=== PATIENT | male | born 1970 | race Caucasian/White ===

== ENCOUNTER 2016-08-30 15:32 | Inpatient (IN) | payer OTHER ==
--- NOTE | ~2016-08-30 | CR230 ---
[facility] A Service of [facility] RADIOLOGY TEXT RESULTS PATIENT: SHELBY RENAE LOCATION: [facility] 466-01 : [birth year] UNIT #: [id number] AGE: [address]: Billy Zamorano MD SEX: M ORDER DR: [id number] [facility]. [place], [place] [address] [id number] MR#: [id number] Acc #: [id number] NAME: SHELBY RENAE : 1970 SEX: M STUDY DATE/TIME: 09/01/2016 11:36 UNIT: [facility] ROOM: [facility] STUDY DESCRIPTION: CR Shoulder Min 2 View Rt Attending Physician: Billy Zamorano M.D. Ordering Physician: Henok Esposito M.D. Primary Care Physician: Elijah Baptiste M.D. MEDICAL IMAGING REPORT This report is preliminary unless electronic signature is present EXAM Right shoulder 2 views INDICATIONS 45-year male with right shoulder pain for 1 week. No known injury. No comparisons. FINDINGS There is no fracture or dislocation. No significant degenerative change. IMPRESSION Negative. Dictated by... Zi Tony M.D. THIS IS AN ELECTRONICALLY VERIFIED REPORT Zi Tony M.D. at 09/02/2016 10:43 AM JILLIAN/stephane TD: 09/02/2016 06:15 JOB #: [id number] MEDICAL IMAGING REPORT COPY
--- NOTE | ~2016-08-30 | CO ---
Unit #: [id number] #: [id number] Patient: SHELBY RENAE [id number] [address] [place], [place] [address] [id number] I MR#: [id number] NAME: SHELBY RENAE ROOM: 466 Age: 45 Sex: M Admission Date: 08/30/2016 : 1970 Attending Physician: Billy Zamorano M.D. Primary Care Physician: Elijah Baptiste M.D. Consultation Date: 08/31/2016 CONSULTATION REPORT REASON FOR CONSULTATION Right shoulder pain. HISTORY OF PRESENT ILLNESS Shelby is a 45-year-old male who presented to the emergency room on August 30, 2016, secondary to scrotal pain and swelling. The patient noted a small perianal scrotal abscess that started a couple days prior to the admission and became significantly worse. He was on Bactrim without improvement. He was seen in emergency room and noted to have enlarging abscess. He was subsequently taken to surgery by Dr. Zamorano for I and D. The patient also notes having right shoulder pain. This was noted preoperatively and has gotten worse over the past couple of days. He notes pain is worse with motion. He has pain over the anterolateral aspect of the right shoulder. No prior problems, injuries, or surgery on the shoulder and it does not seem to be improving. He describes a dull ache. PAST MEDICAL HISTORY 1. Obesity. 2. Psoriasis. 3. Psychiatric history. PAST SURGICAL HISTORY 1. Scrotal abscess I and D. 2. Bilateral hip replacements. HOME MEDICATIONS 1. Fluoxetine. 2. Diltiazem. 3. Gabapentin. 4. Bactrim. ALLERGIES No known drug allergies. REVIEW OF SYSTEMS No other pertinent positives or negatives noted other than what is mentioned in HPI. FAMILY HISTORY Noncontributory. PHYSICAL EXAMINATION GENERAL: The patient is alert and oriented for examination. No acute Unit #: [id number] #: [id number] Patient: SHELBY RENAE distress. VITAL SIGNS: Temperature 97.9 degrees Fahrenheit, pulse 72, respiratory rate 18, blood pressure 132/78, oxygen saturation 99% on room air. HEENT: Head is atraumatic, normocephalic. Extraocular movements intact. Mucous membranes moist. NECK: Cervical spine midline with no JVD. LUNGS: Breathing nonlabored and chest rise symmetric. HEART: Pulse regular rate and rhythm. ABDOMEN: Soft, nontender, nondistended. SKIN: No appreciable skin lesions other than in the scrotal region. EXTREMITIES: No clubbing, cyanosis, or edema of the extremities. All extremities warm and perfused. Focused orthopedic exam of the right upper extremity reveals tenderness to palpation of the anterolateral aspect of the glenohumeral joint. Pain with supraspinatus testing. Strength 3+ out of 5. Minimal discomfort with passive motion with the arm adducted at zero degrees. Full elbow and wrist motion. DIAGNOSTIC STUDIES LABORATORY: White blood cell count 10.1, hemoglobin 12.5, platelets 221,000. Creatinine 1. Blood cultures negative. Scrotal wound culture positive for MRSA. IMAGING: None. IMPRESSION A 45-year-old male with right shoulder pain, likely secondary to rotator cuff tendonitis and bursitis. PLAN We will go ahead and order two-view right shoulder x-rays. I would like to start him on Toradol x3 doses with the pharmacy to dose. We will re-evaluate him tomorrow morning to see if any improvement. I do not think he has any infection that has spread to the shoulder based on exam. This was discussed with the patient. All of his questions were answered. We will monitor his progress. Thank you for consulting us to see this patient. Dictated byGenesis Esposito M.D. SHERRY/haroon TD: 09/01/2016 10:19 JOB #: [id number] CC: [id number] Unit #: [id number] #: [id number] Patient: SHELBY RENAE CONSULTATION REPORT X X CONSULTATION REPORT
--- NOTE | ~2016-08-30 | HP ---
Unit #: [id number] #: [id number] Patient: SHELBY RENAE [id number] [facility]. [place], [place] [address] [id number] I MR#: [id number] NAME: SHELBY RENAE ROOM: 466 Age: 45 Sex: M Admission Date: 08/30/2016 : 1970 Attending Physician: Billy Zamorano M.D. Primary Care Physician: Elijah Baptiste M.D. HISTORY AND PHYSICAL CHIEF COMPLAINT Scrotal pain and swelling. HISTORY OF PRESENT ILLNESS This patient presented to the [facility] emergency department this afternoon and subsequently has had spontaneous drainage of a perineal scrotal abscess. He notes onset of symptoms two days ago and he was prescribed Bactrim by primary care and given an outpatient followup but worsened and presented to the emergency department. He has had no fever or chills but has had progressive groin pain. His abscess spontaneous drained in the mid afternoon. His history is pertinent for obesity, hip replacements twice and MRSA of the hip. He has never had a scrotal abscess before. He also is under pain management with Dr. Jelena Mccord for his orthopedic pain. PAST MEDICAL HISTORY 1. Obesity. 2. Psoriasis. 3. Psychiatric history. 4. Orthopedic history. PAST SURGICAL HISTORY Hip replacements as noted. HOME MEDICATIONS 1. Fluoxetine. 2. Diltiazem. 3. Gabapentin. 4. Bactrim. He received vancomycin, Zosyn and clindamycin several hours ago. ALLERGIES None known. PHYSICAL EXAMINATION VITAL SIGNS: Afebrile with stable vital signs. Initial temperature 98.6, pulse 102, blood pressure 113/84, respirations 18. GENERAL: The patient is fairly comfortable in the stretcher. Notable for obesity and psoriasis. ABDOMEN: Soft, nontender. GENITALIA: Phallus mildly, diffusely reddened. Scrotum large, soft without edema. Mild erythema. Also some vitiligo. The base of scrotum Unit #: [id number] #: [id number] Patient: SHELBY RENAE on the right side is draining deep in the perineum with induration radiating forward. No clear evidence of Mario gangrene. LUNGS: Clear. HEART: Regular rate and rhythm. EXTREMITIES: No edema. NEUROLOGIC: Intact. DIAGNOSTIC STUDIES LABORATORY: Normal BMP. WBC 16.5. IMPRESSION 1. Perineoscrotal abscess. 2. History of MRSA. 3. No history of voiding difficulties or perirectal problems. PLAN We'll continue broad antibiotic coverage and proceed with incision and drainage of perineoscrotal abscess. Dictated by Otilia Helms/mikhail TD: 08/30/2016 21:43 JOB #: [id number] HISTORY AND PHYSICAL X Billy Zamorano MD X HISTORY AND PHYSICAL
--- NOTE | ~2016-08-30 | DS ---
Unit #: [id number] #: [id number] Patient: SHELBY RENAE [id number] [address] [place], [place] [address] [id number] MR#: [id number] NAME: SHELBY RENAE ROOM: 466 Age: 45 Sex: M Admission Date: 08/30/2016 : 1970 Discharge Date: 09/05/2016 Attending Physician: Billy Zamorano M.D. Primary Care Physician: Elijah Baptiste M.D. DISCHARGE SUMMARY JOB NOTE: CC: DR. ELIJAH BAPTISTE AND DR. ROSA RUIZ AND DR. TERRENCE VENTURA. PRIMARY DIAGNOSIS Methicillin-resistant Staphylococcus aureus abscess, right groin. SECONDARY DIAGNOSIS Psoriatic arthritic pain, right shoulder. TERTIARY DIAGNOSIS Chronic pain. PROCEDURES Incision and drainage of right groin abscess on 08/30/2016. CONSULTATIONS Orthopedics, Dr. Rosa Harris on 09/01/2016. DISPOSITION Home pending social service assistance with home dressing changes. FOLLOWUP Orthopedic followup pending at time of discharge. DISCHARGE INSTRUCTIONS See me in 2 weeks for wound check. DISCHARGE MEDICATIONS Same as admission medications including extension of Bactrim double strength one b.i.d. for an additional week. HOSPITAL COURSE This patient with history of psoriasis, hip replacement, and previous MRSA, who was prescribed Bactrim for onset of a right groin abscess, but did not respond within 48 hours and presented to the emergency department with complaints of scrotal pain and swelling. He was broadly covered with vancomycin, clindamycin, and Zosyn. He was taken to the operating room and the abscess drained and packed. It was fairly superficial in nature. I personally did not see him again until the day of discharge, but social service disposition for dressing changes has been underway since postoperative day 1, and he has done well with excellent healing of the wound to date on 07/01 strength Dakin wet-to-dry dressing changes t.i.d. He has required narcotics with dressing changes, which is unusual at this Unit #: [id number] #: [id number] Patient: SHELBY RENAE point, and to be discontinued especially given his pain management history. He has been seen by Orthopedics and treated with anti-inflammatories with partial improvement and followup pending. At the time of discharge, his blood cultures all having been negative, but the wound culture growing MRSA as anticipated shows this fortunately to be sensitive to trimethoprim sulfa as well as Levaquin linezolid, clindamycin, daptomycin, tetracycline, and vancomycin. It is resistant to penicillin, oxacillin, and methicillin as anticipated. DISPOSITION As noted. Dictated by... Otilia Helms/sean TD: 09/06/2016 04:24 JOB #: [id number] DISCHARGE SUMMARY X Billy Zamorano MD X DISCHARGE SUMMARY
--- NOTE | ~2016-08-30 | OR ---
Unit #: [id number] #: [id number] Patient: SHELBY RENAE [id number] [place], [place] [address] [id number] MR#: [id number] NAME: SHELBY RENAE ROOM: [facility] Date of Procedure: 08/30/2016 Admission Date: 08/30/2016 Surgeon: Billy Zamorano M.D. : 1970 Attending Physician: Billy Zamorano M.D. Primary Care Physician: Elijah Baptiste M.D. OPERATIVE REPORT JOB NOTE: CC: DR. ELIJAH BAPTISTE. PREOPERATIVE DIAGNOSIS Perineal scrotal abscess. POSTOPERATIVE DIAGNOSIS Perineal scrotal abscess. PROCEDURE PERFORMED Incision and drainage of perineal scrotal abscess. ANESTHESIA General. INDICATIONS FOR PROCEDURE This 45-year-old man who presents with a 2-day history of worsening pain and swelling of the right hemiscrotum and he has spontaneously drained with a large area of induration showing potential deep extent of the abscess. His white count is 23. He has a history of MRSA. DESCRIPTION OF PROCEDURE The patient was given satisfactory general anesthesia having had vancomycin, Zosyn, and clindamycin preoperatively. He was positioned in dorsal lithotomy and slight Trendelenburg and the perineum widely prepped and draped with the scrotum anteriorly. The area of pointing drainage was probed with hemostats and opened in line with the cavity. Pus was sent for Gram stain and culture. An incision roughly 8 cm was made in the line parallel to the direction of the spermatic cord, but was clearly separate and superficial. There was significant thickening, but probing revealed a simple rather than a complex abscess and there was no necrosis. The abscess cavity was irrigated out with antibiotic solution and packed with 2 inch Kerlix and Betadine. Fluff gauze and mesh pants were applied. The patient tolerated the procedure well. Dictated by... Billy Zamorano M.D. NOEL/sean TD: 08/31/2016 02:17 Unit #: [id number] #: [id number] Patient: SHELBY RENAE JOB #: [id number] OPERATIVE REPORT X Billy Zamorano MD PROCEDURE OPERATIVE NOTE
[2016-08-30 16:22] LABS: BASOPHIL# 0.2 X10e3 (0-0.3); EOSINOPHIL# 0.2 X10e3 (0-0.7); HEMATOCRIT 42.3 % (38.0-50.0); HEMOGLOBIN 13.6 gm/dL (13.0-16.0); LYMPHOCYTE# 2.5 X10e3 (1.0-3.5); LYMPHOCYTE% 14.9 % (17.0-45.0); MEAN CELL VOLUME 80.4 FL (83-96); MEAN CORPUSCULAR HEMOGLOBIN 25.9 PG (28-34); MEAN CORPUSCULAR HGB CONC 32.2 g/dL (30-36); MEAN PLATELET VOLUME 7.3 FL (6.5-11.5); MONOCYTE# 1.8 X10e3 (0-1.0); MONOCYTE% 10.8 % (3.0-12.0); NEUTROPHIL# 11.9 X10e3 (1.5-7.1); NEUTROPHIL% 72.3 % (40-75); PLATELET COUNT 244 X10e3 (140-420); RED BLOOD COUNT 5.26 X10e (3.90-5.60); RED CELL DISTRIBUTION WIDTH 14.8 % (11.0-15.5); WHITE BLOOD COUNT 16.5 X10e3 (4.0-10.5)
[2016-08-30 16:25] LABS: DIFF IND YES
[2016-08-30 16:38] LABS: ALBUMIN SERUM 3.9 g/dL (3.5-5.0); ALKALINE PHOSPHATASE 89 U/L (32-92); ALT (SGPT) 45 U/L (10-40); AST (SGOT) 36 U/L (10-42); BILIRUBIN,TOTAL 0.4 mg/dL (0.2-2.0); BLOOD UREA NITROGEN 10 mg/dL (9-23); BUN/CREATININE RATIO 9.09; CALCIUM SERUM 9.1 mg/dL (8.4-10.2); CARBON DIOXIDE 20 mmol/L (22-31); CHLORIDE 100 mmol/L (100-111); CREATININE SERUM 1.1 mg/dL (0.6-1.4); GLOM FILT RATE Estimated ABOVE60 mL/min (>60); GLUCOSE FASTING 95 mg/dL (70-110); PROTEIN TOTAL SERUM 7.9 g/dL (6.0-8.3); SODIUM 131 mmol/L (135-145)
[2016-08-30 16:47] LABS: INR 1.1; PARTIAL THROMBOPLASTIN TIME 28.5 SECONDS (23.5-31.3); PROTHROMBIN TIME (PATIENT) 11.4 SECONDS (9.6-11.5)
[2016-08-30 17:11] LABS: PLATELET ESTIMATE NORMAL (NORMAL); RBC NORMAL YES
[2016-08-30] MEDS ORDERED: SARAFEM20 MG PO ×2 (17:19→17:20)
[2016-08-30] MEDS ORDERED: GABAPENTIN600 MG PO (17:19)
[2016-08-30] MEDS ORDERED: LIPITOR20 MG PO (17:20)
[2016-08-30] MEDS ORDERED: DILTIAZEM 24HR240 MG PO (17:20)
[2016-08-30] MEDS ORDERED: BACTRIM 400-801 TA1 PO (17:23)
[2016-08-31 03:01] LABS: BASOPHIL# 0.1 X10e3 (0-0.3); BASOPHIL% 0.9 % (0-2.5); EOSINOPHIL# 0.3 X10e3 (0-0.7); EOSINOPHIL% 2.7 % (0.0-7.0); HEMATOCRIT 38.6 % (38.0-50.0); HEMOGLOBIN 12.5 gm/dL (13.0-16.0); LYMPHOCYTE# 1.6 X10e3 (1.0-3.5); MEAN CELL VOLUME 80.8 FL (83-96); MEAN CORPUSCULAR HEMOGLOBIN 26.2 PG (28-34); MEAN CORPUSCULAR HGB CONC 32.4 g/dL (30-36); MEAN PLATELET VOLUME 7.2 FL (6.5-11.5); MONOCYTE# 0.8 X10e3 (0-1.0); NEUTROPHIL# 7.3 X10e3 (1.5-7.1); NEUTROPHIL% 72.4 % (40-75); PLATELET COUNT 221 X10e3 (140-420); RED BLOOD COUNT 4.78 X10e (3.90-5.60); RED CELL DISTRIBUTION WIDTH 14.5 % (11.0-15.5); WHITE BLOOD COUNT 10.1 X10e3 (4.0-10.5)
[2016-08-31 03:02] LABS: DIFF IND NO
[2016-08-31 03:31] LABS: BLOOD UREA NITROGEN 10 mg/dL (9-23); CALCIUM SERUM 8.5 mg/dL (8.4-10.2); CARBON DIOXIDE 24 mmol/L (22-31); CHLORIDE 101 mmol/L (100-111); GLOM FILT RATE Estimated ABOVE60 mL/min (>60); GLUCOSE FASTING 89 mg/dL (70-110); SODIUM 132 mmol/L (135-145)
[2016-09-02 05:51] LABS: BLOOD UREA NITROGEN 15 mg/dL (9-23); CALCIUM SERUM 9.3 mg/dL (8.4-10.2); CARBON DIOXIDE 23 mmol/L (22-31); CHLORIDE 103 mmol/L (100-111); GLOM FILT RATE Estimated ABOVE60 mL/min (>60); GLUCOSE FASTING 80 mg/dL (70-110); POTASSIUM 4.7 mmol/L (3.5-5.1); SODIUM 136 mmol/L (135-145)
[2016-09-04 04:19] LABS: BLOOD UREA NITROGEN 9 mg/dL (9-23); CALCIUM SERUM 8.8 mg/dL (8.4-10.2); CARBON DIOXIDE 25 mmol/L (22-31); CHLORIDE 102 mmol/L (100-111); CREATININE SERUM 0.9 mg/dL (0.6-1.4); GLOM FILT RATE Estimated ABOVE60 mL/min (>60); GLUCOSE FASTING 89 mg/dL (70-110); SODIUM 135 mmol/L (135-145)
[2016-09-05] MEDS ORDERED: BACTRIM DS TABL1 TA1 PO (11:53)
[2016-09-05] MEDS ORDERED: DAKIN'S473 M1 MC (11:54)
== END 2016-09-05 12:33 | disposition home health service (06) | DRG 728 ==
LOC: CED 15:32 → CSUR 17:55 → C4C 19:14
PROVIDERS: Nurse Practitioner; Urology
PROC: 0V950ZZ Drainage of Scrotum, Open Approach (ICD-10-PCS; principal; 2016-08-30 18:00)
DX: N49.2 Inflammatory disorders of scrotum (principal); B95.62 Methicillin resistant Staphylococcus aureus infection as the cause of diseases classified elsewhere; E66.9 Obesity, unspecified; Z86.14 Personal history of Methicillin resistant Staphylococcus aureus infection; L40.9 Psoriasis, unspecified; Z96.643 Presence of artificial hip joint, bilateral; M75.51 Bursitis of right shoulder; M75.101 Unspecified rotator cuff tear or rupture of right shoulder, not specified as traumatic; Z68.32 Body mass index [BMI] 32.0-32.9, adult
CPT/HCPCS: 36415; 73030; 80048; 80053; 80202; 82947; 83605; 85025; 85610; 85730; 86850; 86900; 86901; 87040; 87070; 87075; 87077; 87186; 87205; 94760; 96361; 96365; 99285; J1170; J1650; J1885; J2250; J2270; J2405; J2543; J3010; J3370